=== PATIENT | male | born 1945 | race Caucasian/White ===

== ENCOUNTER → 2018-05-08 09:58 | Outpatient (CLI) | payer MEDICARE, OTHER, SELFPAY ==
--- NOTE | 2018-05-08 | DI.RAD.S_ITS ---
PROCEDURE: XR LUMBAR SPINE 2-3V INDICATIONS: BACK PAIN TECHNIQUE: 3 views of the lumbar spine were acquired. COMPARISON: [facility], , L-SPINE 2-3 VIEWS, 03/25/2010, 11:51. FINDINGS: Bones: 5 [id number] vertebrae are present. There is normal bony alignment. No vertebral body compression fractures. No suspicious bony lesions. The degenerative disc disease and facet osteoarthritis along the lumbosacral line which is progressively more prominent from L2 inferiorly has mildly worsened from the February 2010 plain film comparison study. Spinal and foraminal stenosis likely is present from L3 inferiorly and most pronounced at L5-S1. Soft tissues: Overlying bowel gas pattern is normal. No suspicious soft tissue calcifications. IMPRESSION: Worsening degenerative disc disease and facet osteoarthritis especially over the lower half of the LS-spine and yet no compression fracture is found or subluxation. Dictated by: Michel Higuera M.D. on 05/08/2018 at 10:37 Approved by: Michel Higuera M.D. on 05/08/2018 at 10:40
== END ==
PROVIDERS: Family Provider Family Medicine; PCP Family Medicine; Visit Provider Family Medicine
DX: M51.37 Other intervertebral disc degeneration, lumbosacral region (principal); M47.817 Spondylosis without myelopathy or radiculopathy, lumbosacral region
CPT/HCPCS: 72100

== ENCOUNTER → 2018-11-21 09:29 | Outpatient (CLI) | payer MEDICARE, OTHER, SELFPAY ==
--- NOTE | 2018-11-21 | DI.RAD.S_ITS ---
PROCEDURE: XR FINGER LT MIN 2V INDICATIONS: LEFT RING FINGER INFECTION/CELLULITIS? TECHNIQUE: AP hand, 2 views of the fourth finger(s) acquired. COMPARISON: [facility], , HAND 3V LEFT, 02/17/2018, 16:34. FINDINGS: Bones: No fractures or dislocations but there is absence of the fifth digit from the proximal phalanx distally and absence of the fourth digit from the middle phalanx distally. No suspicious bony lesions. Soft tissues: No new suspicious soft tissue calcifications and the previously present presumed dystrophic calcifications in the soft tissues adjacent to the distal half of the fourth middle phalanx are little if any change from January of this year. Soft tissue swelling is present distally.. IMPRESSION: Soft tissue swelling present distally at the left fourth digit in this patient with prior fourth and fifth partial amputations. Osteomyelitis is not identified with reference to the prior study from January of this year. Dictated by: Michel Higuera M.D. on 11/21/2018 at 10:23 Approved by: Michel Higuera M.D. on 11/21/2018 at 10:25
== END ==
PROVIDERS: PCP Family Medicine; Visit Provider Family Medicine
DX: L03.012 Cellulitis of left finger (principal)
CPT/HCPCS: 73140

== ENCOUNTER 2018-12-19 09:03 | Emergency (ER) | payer MEDICARE, OTHER, SELFPAY ==
[2018-12-19 09:05] VITALS: BP 152/93; PULSE 68; RESP 18; TEMP 36.4; O2SAT 100; BMI 28.6
--- NOTE | 2018-12-19 09:33 | PC.NURSE ---
Dr. Cali performing an I&D
--- NOTE | 2018-12-19 09:48 | ED_ITS ---
HPI - Skin/Abscess/Foreign Bdy General Chief complaint: Skin/Abscess/Foreign Body Stated complaint: INFECTED LEFT RING FINGER Time Seen by Provider: 12/19/18 09:21 Source: patient Mode of arrival: ambulatory Limitations: no limitations History of Present Illness HPI narrative: Patient complains of pain, redness, and swelling of his left ring finger stump for the last 2 months. He states he cut the end of his stump and that it became red and irritated and appeared infected. He has been followed by his primary doctor, and has been on a couple different courses of antibiotics, without improvement in symptoms. He is concerned because he continues to have swelling and pain and he has been noticing some purulent drainage out of the wound on the end of his finger. He states that the cut his mostly healed up, but that a very small portion of it has remained open. Patient had an amputation of the finger in a work related injury about 35 years ago, and has not had chronic problems. He denies fevers or streaking. He is not a diabetic. No other complaints at this time. Related Data Home Medications Medication Instructions Recorded Confirmed ciprofloxacin HCl 500 mg PO BID 12/19/18 12/19/18 rosuvastatin 5 mg PO DAILY 12/19/18 12/19/18 Allergies Allergy/AdvReac Type Severity Reaction Status Date / Time No Known Drug Allergies Allergy Verified 12/19/18 09:21 Review of Systems Constitutional Denies chills, Denies fever(s), Denies lethargy and Denies weakness Eyes Denies change in vision, Denies eye discharge, Denies irritation and Denies loss of vision ENT Ears, Nose, Mouth, and Throat: Denies change in voice, Denies neck pain and Denies sore throat Cardiovascular Denies chest pain, Denies irregular heart rhythm, Denies lightheadedness, Denies palpitations, Denies dyspnea, Denies dyspnea on exertion and Denies orthopnea Respiratory Denies cough, Denies dyspnea, Denies dyspnea on exertion and Denies wheezing Gastrointestinal Gastrointestinal: Denies abdominal pain, Denies change in bowel habits, Denies diarrhea, Denies nausea and Denies vomiting Genitourinary Denies hematuria, Denies flank pain, Denies urinary incontinence and Denies urinary urgency Musculoskeletal Denies neck pain Integumentary/Breasts Denies pruritus, Reports erythema, Denies rash and Denies wounds Neurologic Denies confusion, Denies loss of vision and Denies weakness Psychiatric Denies anxiety, Denies confusion, Denies depression, Denies homicidal ideation and Denies suicidal ideation Endocrine Denies palpitations Hematologic/Lymphatic Denies easy bruising Allergic/Immunologic Denies wheezing PFSH Medical History Finger amputation, traumatic (Chronic) Healthy adult (Acute) Social History Smoking Status: Current some day smoker Exam Initial Vital Signs Initial Vital Signs: Vital Signs Temperature 97.5 F L 12/19/18 09:05 Pulse Rate 68 12/19/18 09:05 Respiratory Rate 18 12/19/18 09:05 Blood Pressure 152/93 H 12/19/18 09:05 Pulse Oximetry 100 12/19/18 09:05 Const General: cooperative and well developed Nutritional Appearance: well nourished Orientation: alert, awake, oriented x3 and not confused HENIA Head: normocephalic and atraumatic Ears: external ears normal Nose: external nose normal and No nasal discharge Face and sinus: face symmetric and No dry mucous membranes Mouth: oral mucosae normal and moist mucous membranes Teeth and gingiva: dentition normal Eyes General: appearance normal, both eyes and all related structures Eyelids: eyelids normal Conjunctivae: conjunctivae normal Sclera: sclerae normal Pupils: PERRL EOM: EOM intact bilaterally Neck Neck: normal visual inspection, trachea midline, No lymphadenopathy, No midline deformity and No JVD Lymphatic: No lymphedema Chest Chest: normal inspection of the chest Resp Effort & Inspection: normal respiratory effort, able to speak in complete sentences, no respiratory distress and no use of accessory muscles Cardio Pulses: normal peripheral pulses Back/Spine/Pelvis Back: No CVA tenderness Cervical Spine: cervical ROM normal and No pain with cervical ROM Thoracic/Lumbar Spine: thoracic and lumbar spine normal to inspection Skin General: no rashes or lesions noted, No jaundice and No petechiae Other: Patient has erythema and mild edema of the tip of his left ring finger stump. A very tiny wound is noted at the very tip of the finger. A small amount of serosanguineous fluid is expressible from the wound. No distinct fluctuant areas noted, though the anterior portion of the finger tip is indurated. No streaking. The erythema and swelling is confined to the distal- most cm of the finger. Neuro General: alert, oriented x3, gait normal and no focal motor deficits Speech: speech normal Extrem General: full ROM, no clubbing, cyanosis or edema, no pedal edema and no calf tenderness Psych Appearance: well kempt Mental Status: mental status grossly normal Attitude: cooperative Thought Content: normal and suicidality Judgment: judgment good Procedures Abscess I/D Site: hand Side (if applicable): left Local Anesthetic: lidocaine 2% Amount of anesthesia used (mL): 1 Technique: incised with #11 blade Irrigation: Yes Packing used?: none Course Course Narrative: I did perform an I&D on the finger tip, and this yielded no purulent material. I discussed with the patient that after he finishes his current antibiotics, Cipro, which he has about a week last, he should stay off the antibiotics and see if the redness spreads or worsens. If it does not, this problem is unlikely to be infectious in nature. The patient has undergone a hot water and Betadine soak in the emergency department, and his wound has been dressed here with antibiotic ointment. I have advised the patient to do hot soaks 3 times a day for 20 min at a time, as patient has not done any soaking at all since this problem has started. He should follow up with his primary care physician. We have discussed the usual indications for return. Orders Ordered: ED Orders 12/19/18 09:32 Wound Culture and Gram Stain Stat Vital Signs - 8 hr 12/19/18 09:05 Temperature 97.5 F L Pulse Rate 68 Respiratory Rate 18 Blood Pressure 152/93 H Pulse Oximetry 100 MDM - Skin/Abscess/Foreign Bdy Medical Records Attestation: I reviewed the patient's medical records. Discharge Plan Departure Patient Disposition: Home Clinical Impression: Cellulitis and abscess of finger, unspecified Discharge Date/Time: 12/19/18 10:25 Interventions: ED Discharge Assessment Last Done: 12/19/18 10:25 Instructions: DI for Cellulitis -- Adult Activity Restrictions/Additional Instructions: You should finish the course of antibiotics that you are currently on. The incision today did not yield any pus, and there is no evidence of an abscess cavity at this time. The past that you have noted from her wound is most likely fairly superficial. Doing hot soaks 3 times a day for 20 min each will help to draw this out and prevent pus from building up. Please follow up with your primary doctor if you continue to have symptoms after you would finish the Cipro. If you stay off of the antibiotics once this course is done, and the redness and swelling do not worsen or spread, the problem is most likely not infectious. Prescriptions: No Action ciprofloxacin HCl 500 mg tablet 500 mg PO BID RF: 0 rosuvastatin 5 mg tablet 5 mg PO DAILY RF: 0 Referrals: Compa Rajput MD [Primary Care Provider] -
[2018-12-19 10:25] VITALS: BP 148/79; PULSE 58; RESP 18; O2SAT 99
== END 2018-12-19 10:25 | disposition home or self-care (01) ==
PROVIDERS: Emergency Provider Emergency Medicine; PCP Family Medicine
DX: L03.012 Cellulitis of left finger (principal); L02.512 Cutaneous abscess of left hand
CPT/HCPCS: 10060; 87070; 87077; 87205; 99282; 99283

== ENCOUNTER 2018-12-27 13:30 | Emergency (ER) | payer MEDICARE, OTHER, SELFPAY ==
[2018-12-27 13:40] VITALS: BP 134/71; PULSE 72; RESP 15; TEMP 36.4; O2SAT 98; BMI 28.6
--- NOTE | 2018-12-27 14:02 | PC.NURSE ---
pt reports, hx of amputated finger long ago, about 3 months ago, pt obtained laceration from a knife,distal finger is always red and swelling, here today, concern of white spot on the distal finger, concern for wart? pt denies fever, reports updated with tetanus, denies diabetes. denies taking any antibiotics.
--- NOTE | 2018-12-27 14:16 | ED.EXTPRO ---
HPI - Extremity Problem General Chief complaint: Extremity Problem,Nontraumatic Stated complaint: left hand ring finger has a hard growth Time Seen by Provider: 12/27/18 13:51 Source: patient Mode of arrival: ambulatory History of Present Illness HPI Narrative: Patient is a 73-year-old male who presents with left finger redness. He actually had his left ring finger amputated a number of years ago it has been red for the last 2 months. He was seen evaluated here about a week ago her increasing pain and redness. He has not had any fever there is no streaking of the redness. It was I indeed at that time but no pus. He says that he has sees some white thing at the tip of the incision site he is not sure that it has a scab he can't figure out what it is. Related Data Home Medications Medication Instructions Recorded Confirmed rosuvastatin 5 mg PO DAILY 12/19/18 12/27/18 fluticasone 1 spray INTRANASAL DAILY 12/27/18 12/27/18 loratadine 10 mg PO DAILY 12/27/18 12/27/18 oxymetazoline [Vicks Sinex Ultra 1 spray INTRANASAL PRN PRN 12/27/18 12/27/18 Fine Mist 12] Allergies Allergy/AdvReac Type Severity Reaction Status Date / Time No Known Drug Allergies Allergy Verified 12/27/18 13:40 Review of Systems Review of Systems GENERAL: Denies chills,fever HEENT: Denies throat pain RESPIRATORY: Denies dyspnea, cough, wheezing CARDIOVASCULAR: Denies chest pain, palpitations GASTROINTESTINAL: Denies nausea, vomiting MUSCULOSKELETAL: Denies extremity pain, injury SKIN: Erythema at tip of the stump NEUROLOGIC: Denies weakness, dizziness, headache, numbness 8 point review of systems is negative except for those stated above and HPI PFSH Medical History Finger amputation, traumatic (Chronic) Healthy adult (Acute) Social History Smoking Status: Current some day smoker Exam Initial Vital Signs Initial Vital Signs: Vital Signs Temperature 97.5 F L 12/27/18 13:40 Pulse Rate 72 12/27/18 13:40 Respiratory Rate 15 12/27/18 13:40 Blood Pressure 134/71 12/27/18 13:40 Pulse Oximetry 98 12/27/18 13:40 GENERAL: Very pleasant well-appearing elderly gentleman CARDIOVASCULAR: peripheral pulses in tact, cap refill <2 sec RESPIRATORY: No respiratory distress, speaks in full sentences without difficulty EXTREMITIES: Normal range of motion, no clubbing or edema. Neurovascularly intact NEUROLOGICAL: Cranial nerves II through XII grossly intact. Normal gait and speech. SKIN: Left ring finger stump the tip is erythematous there is no significant swelling. Is extremely sensitive to touch Site of previous incision and drainage is noted there does seem to be a hard white type foreign body at that site. It does not wipe off. Procedures Foreign Body OTHER Time Out Performed: yes Site: left Description of foreign body: other Technique: manual removal and removal with forceps Confirmed by:: direct visualization Complications: none Post-procedure exam: awake, alert Neurovascular: normal distal pulse Nerve Block Nerve Block 1: Time out performed: Yes Local Anesthetic: lidocaine 1% Amount of anesthesia used (mL): 2 Side: left Nerve Blocks: digital Course Vital Signs - 8 hr 12/27/18 13:40 12/27/18 14:40 Temperature 97.5 F L Pulse Rate 72 62 Respiratory Rate 15 16 Blood Pressure 134/71 Blood Pressure [Right Arm] 124/69 Pulse Oximetry 98 97 MDM - Extremity (Nontraumatic) MDM Narrative Medical decision making narrative: A 1 cm by 0.5 cm cartilage nail like foreign body removed from the tip of finger. Patient tolerated procedure very well. I think this has been what is been causing the redness and irritation. It looks like nail/cartilage material. Discharge Plan Departure Patient Disposition: Home Clinical Impression: Nail anomaly Discharge Date/Time: 12/27/18 15:09 Interventions: ED Discharge Assessment Last Done: 12/27/18 15:08 Instructions: DI for Nail Bed Injury Activity Restrictions/Additional Instructions: *You have been diagnosed with nail anomaly *What to do: I think the redness is likely from inflammation from the nail like thing pulled out today. Continue with antibiotic ointment and covering wound I anticipated to start healing *Continue to take medications as directed *Follow up with your primary care provider in 2-3 days *Return to ER if you should have redness, pus, swelling, fever or any new, worsening or concerning symptoms Prescriptions: No Action rosuvastatin 5 mg tablet 5 mg PO DAILY RF: 0 fluticasone 50 mcg/actuation spray,suspension 1 spray Intranasal DAILY RF: 0 loratadine 10 mg tablet 10 mg PO DAILY RF: 0 oxymetazoline [Vicks Sinex Ultra Fine Mist 12] 0.05 % Mist 1 spray Intranasal PRN PRN (Reason: Congestion) RF: 0 Referrals: Compa Rajput MD [Primary Care Provider] -
[2018-12-27 14:40] VITALS: BP 124/69; PULSE 62; RESP 16; O2SAT 97
--- NOTE | 2018-12-27 15:07 | PC.NURSE ---
left ring finger, irrigated with normal saline, dried, bacitracin ointment applied with tube gauze. tolerated well, hemostasis. distal cms intact. reviewed s/sxs of infection, return prn, verbal understanding instructions.
== END 2018-12-27 15:09 | disposition home or self-care (01) ==
PROVIDERS: Emergency Provider Emergency Medicine; PCP Family Medicine
DX: S60.459A Superficial foreign body of unspecified finger, initial encounter (principal)
CPT/HCPCS: 99283

== ENCOUNTER → 2021-02-18 12:31 | Outpatient (CLI) | payer MEDICARE, OTHER, SELFPAY ==
--- NOTE | 2021-02-18 12:35 | DI.US.S_ITS ---
PROCEDURE: US RENAL COMPLETE INDICATIONS: URINE RETENTION TECHNIQUE: Real-time scanning was performed of the kidneys and bladder, with image documentation. COMPARISON: [facility] Ultrasound, US, US RENAL COMPLETE, 09/26/2019, 6:36. FINDINGS: Kidneys: Kidneys are normal in size. Right kidney measures 11.5 cm long; left kidney measures 11.3 cm long. Right renal cortical thickness is 1.7 cm; left renal cortical thickness is 1.3 cm. Renal cortical echotexture is normal. No hydronephrosis or nephrolithiasis. No suspicious solid mass lesions. Bilateral renal cyst redemonstrated, largest on the right measuring up to 2.2 cm as well as 2.2 cm on the left. Bladder: Pre-void bladder volume is 1035 mL. Post-void residual is 110 mL. Pre-void images demonstrate no intraluminal masses or stones. On pre-void images, bilateral ureteral jets are noted with color Doppler interrogation. (Of note, ureteral jets may not be detectable in up to 25% of cases due to insufficient differences in specific gravity between ureteral and bladder urine). Miscellaneous: No free pelvic fluid. IMPRESSION: 1. Multiple bilateral renal cyst redemonstrated and no hydronephrosis is present. 2. 110 cc postvoid residual. Dictated by: Mikael Delcid [facility] Interpreted: Michel Higuera MD on 02/18/2021 at 17:03 Approved by: Michel Higuera M.D. on 02/18/2021 at 17:38
== END ==
PROVIDERS: PCP Family Medicine; Referring Provider Urology; Visit Provider Urology
DX: R33.9 Retention of urine, unspecified (principal); N28.1 Cyst of kidney, acquired
CPT/HCPCS: 76770

== ENCOUNTER → 2021-10-08 09:53 | Outpatient (CLI) | payer MEDICARE, OTHER, SELFPAY ==
[2021-10-08 12:28] LABS: COVID19 -Nasal RAPID Negative (Negative)
== END ==
PROVIDERS: PCP Family Medicine; Visit Provider Surgery
DX: Z01.812 Encounter for preprocedural laboratory examination (principal); Z20.822 Contact with and (suspected) exposure to COVID-19
CPT/HCPCS: 87635; C9803

== ENCOUNTER 2021-10-11 08:02 | Day surgery (SDC) | payer MEDICARE, OTHER, SELFPAY ==
[2021-10-11 08:21] VITALS: BP 148/77; PULSE 63; RESP 16; TEMP 36.6; O2SAT 96; BMI 29.0
[2021-10-11] MEDS: LACTATED RINGERS 1,000 ML 200 ML IV (08:42)
--- NOTE | 2021-10-11 08:54 | PM.HP.1 ---
History of Present Illness History of Present Illness Date Patient Seen: 10/11/21 Time Patient Seen: 08:54 Chief complaint: SCREENING COLONOSCOPY Narrative: The patient presents for colorectal sreening. Previous colonoscopy 10-15 years ago was normal per self report No personal or family history of colon cancer. On further history denies any recent gastrointestinal symptoms. No nausea, vomiting, abdominal pain, loss of appetite, unexplained weight loss, change in bowel habits, diarrhea, constipation, melena, hematochezia, or bright red blood per rectum. Patient History Medical History Finger amputation, traumatic Healthy adult Family & Social History Social History: household members spouse Tobacco & Substance use: Tobacco type pipe,cigars Smoking Status Current some day smoker alcohol intake frequency 0-2 drinks per day Substance Use Type does not use Meds Home Medications and Allergies Home Medications Medication Instructions Recorded Confirmed Type rosuvastatin 5 mg tablet 5 mg PO DAILY 12/19/18 12/27/18 History fluticasone propionate 50 1 spray INTRANASAL DAILY 12/27/18 12/27/18 History mcg/actuation nasal spray,suspension loratadine 10 mg tablet 10 mg PO DAILY 12/27/18 12/27/18 History oxymetazoline 0.05 % nasal mist 1 spray INTRANASAL PRN PRN 12/27/18 12/27/18 History (Vicks Sinex Ultra Fine Mist 12-Hour) sodium,potassium,mag sulfates 17.5 See Rx Instructions PO .COMPLEX 08/13/21 Rx gram-3.13 gram-1.6 gram oral soln #354 ml (Suprep Bowel Prep Kit) Allergies Allergy/AdvReac Type Severity Reaction Status Date / Time No Known Drug Allergies Allergy Verified 10/11/21 08:16 Exam Vital Signs (past 8 hours): - 10/11/21 08:21 Temperature 98 F Pulse Rate 63 Respiratory Rate 16 Blood Pressure 148/77 H Pulse Oximetry 96 Oxygen Delivery Method Room Air Narrative Exam Narrative: Constitutional-he is oriented to person, place and time. No apparent distress Cardiovascular- regular rate, no peripheral edema Pulmonary-unlabored respiratory effort, no audible wheezing Abdominal-soft, non-tender, non-distended Musculoskeletal-no cyanosis or clubbing Neurological-nonfocal, normal strength throughout, Assessment & Plan Assessment and plan (1) Screening for colon cancer: Status: Acute Assessment & Plan narrative: The patient requires colorectal screening and colonoscopy is recommended. Technical details were discussed. Risks, benefits, alternatives explained. Risks including but not limited to myocardial infarction, aspiration, bleeding, pain, missed lesion, incomplete examination, need for further radiographic studies, colonic perforation, and need for major abdominal surgery were discussed. All questions were answered to their satisfaction, and they are in agreement with this plan. Time Spent With Patient Critical Care time: I spent a total of [] minutes of critical care time on this patient's care today; this time is exclusive of procedural time.
[2021-10-11] MEDS: fentaNYL 250 MCG/5 ML INJ IV (09:25)
--- NOTE | 2021-10-11 09:25 | PM.OP.COLON ---
Operative Date/Time/Diagnoses Date of procedure: 10/11/21 Time of procedure: 09:25 Pre-op diagnosis: Screening Post-op diagnosis: same Procedure & Clinicians Study performed: Colonoscopy Same procedure as scheduled: Yes Indications: Screening Surgeon: Agustín Villanueva Procedure Notes Procedure in detail: Medications: Conscious sedation using 4mg IV midazolam and 150mcg IV of fentanyl The history and physical was performed/updated and the patient is ASA class is 2. The procedure was discussed in detail with the patient. Potential risks complications including infection, bleeding, missed diagnosis, perforation, need for surgery, and were explained. Their questions were answered and informed consent was obtained. Patient was brought to the procedure room and placed standard monitoring equipment. The patient's vital signs were monitored continuously throughout the entire procedure. Prior to starting time-out was performed. The patient was placed in the left lateral recumbent position. Procedural sedation was administered. Examination began with a thorough inspection of the perianal area there was no evidence of fissures, fistulae, external hemorrhoids or cutaneous malignancy. The colonoscopy scope was then placed into the anal canal and was advanced to the cecum, which was identified by the ileocecal valve, the appendiceal orifice and the confluence of the taenia. The scope was then slowly withdrawn examining colon thoroughly in all directions, irrigating it of any residual stool. FINDINGS 1. No masses or polyps 2. Diverticulosis The patient tolerated the procedure well. They will be discharged once criteria are met. The prep was of fair quality. The withdrawl time was 6 minutes. The sedation time was 22 minutes. Specimen(s): none sent Complications: none Impression: Normal colonoscopy Post-procedure Plan for aftercare: No need for further colonoscopy Disposition: same day surgery
[2021-10-11] MEDS: MIDAZOLAM 5 MG/5 ML VIAL IV (09:26)
[2021-10-11 09:30] VITALS: BP 116/65; PULSE 60; RESP 14; TEMP 36.6; O2SAT 94
[2021-10-11 09:31] VITALS: BP 113/66; PULSE 59; RESP 14; O2SAT 95
[2021-10-11 09:38] VITALS: BP 121/66; PULSE 68; RESP 16; O2SAT 97
[2021-10-11 09:44] VITALS: BP 136/78; PULSE 61; RESP 16; TEMP 37.1; O2SAT 97
== END 2021-10-11 09:57 | disposition home or self-care (01) ==
PROVIDERS: PCP Family Medicine; Referring Provider Surgery; Visit Provider Surgery
PROC: 0DJD8ZZ Inspection of Lower Intestinal Tract, Via Natural or Artificial Opening Endoscopic (ICD-10-PCS; CPT 45378; principal; 2021-10-11 09:15)
DX: Z12.11 Encounter for screening for malignant neoplasm of colon (principal); Z72.0 Tobacco use; K57.30 Diverticulosis of large intestine without perforation or abscess without bleeding
CPT/HCPCS: G0121; 99152; J2250; J3010

== ENCOUNTER → 2022-07-20 10:47 | Outpatient (CLI) | payer MEDICARE, OTHER, SELFPAY ==
--- NOTE | 2022-07-20 | DI.US.S_ITS ---
PROCEDURE: US RENAL COMPLETE INDICATIONS: URINARY RETENTION TECHNIQUE: Real-time scanning was performed of the kidneys and bladder, with image documentation. COMPARISON: None. FINDINGS: Kidneys: Right: Right kidney measures 10 cm in length with normal cortical thickness. Multiple parapelvic cysts identified, largest measuring 1.9 x 2.1 x 1.7 cm. No hydronephrosis. No shadowing calculus. Left: Left kidney measures 11.4 cm in length with normal cortical thickness. No shadowing calculus or hydronephrosis. Multiple parapelvic cysts, largest in the lower pole measuring up to 2.1 x 2.0 x 1.5 cm. There is also and exophytic cyst in the lower pole left kidney measuring 1.5 x 2.2 x 2.4 cm. Bladder: Postvoid residual is 180 mL. The bladder was markedly distended prior to voiding. Prevoid urinary bladder or was 1.8 L. There appears to be some mild trabeculation of the urinary bladder but no wall thickening or mass identified. Miscellaneous: No free pelvic fluid. IMPRESSION: Multiple parapelvic renal cysts bilaterally. No hydronephrosis. No renal atrophy. Very high prevoid urinary bladder volume of 1.8 L. Moderate urinary bladder postvoid residual with trabeculation. Dictated by: Min Sage M.D. on 07/20/2022 at 21:22 Approved by: Min Sage M.D. on 07/20/2022 at 21:25
== END ==
PROVIDERS: PCP Family Medicine; Referring Provider Urology; Visit Provider Urology
DX: R33.9 Retention of urine, unspecified (principal); N28.1 Cyst of kidney, acquired; N32.89 Other specified disorders of bladder
CPT/HCPCS: 76770